=== PATIENT | female | born 1960 | race Hispanic/Latino ===

== ENCOUNTER → 2019-07-15 | Outpatient (CLI) | payer OTHER ==
--- NOTE | 2019-07-15 13:15 | Diagnostic Imaging Report ---
EXAMINATION: ELBOW RIGHT COMPLETE INDICATION: Right elbow pain COMPARISON: None FINDINGS: No acute fracture or dislocation. Alignment is anatomic. Mild triceps enthesopathy. No substantial joint effusion. IMPRESSION: No acute osseous injury. Signed by: Roxana Zavala MD on 07/15/2019 1:11 PM
--- NOTE | 2019-07-15 13:16 | Diagnostic Imaging Report ---
EXAMINATION: SHOULDER RIGHT COMPLETE INDICATION: Right shoulder pain COMPARISON: None FINDINGS: No acute fracture or dislocation. Alignment appears anatomic. Mild degenerative changes of the glenohumeral and acromioclavicular joint. The partially visualized right lung is clear. IMPRESSION: No acute osseous injury. Mild glenohumeral and acromioclavicular degenerative changes. Signed by: Roxana Zavala MD on 07/15/2019 1:13 PM
== END ==
LOC: RAD 12:33
PROVIDERS: ATTEND Family Medicine
DX: M25.521 Pain in right elbow (principal); M25.511 Pain in right shoulder